=== PATIENT | female | born 1960 | race Two or more races ===

== ENCOUNTER → 2017-09-28 | Outpatient (CLI) | END | disposition home or self-care (01) ==

== ENCOUNTER 2017-12-02 15:10 | Emergency (ER) | END 2017-12-02 17:10 | disposition home or self-care (01) ==

== ENCOUNTER → 2017-12-07 | Outpatient (CLI) | END | disposition home or self-care (01) ==

== ENCOUNTER → 2018-02-04 | Outpatient (CLI) | END | disposition home or self-care (01) ==